=== PATIENT | male | born 1980 | race Caucasian/White ===

== ENCOUNTER 2019-01-22 09:57 | Emergency (ER) | payer SELFPAY ==
[~2019-01-22] VITALS: Ht 172.7 cm; Wt 81.8 kg
[2019-01-22 10:07] VITALS: TEMP 97.8
[2019-01-22] MEDS ORDERED: NORCO 325 MG-7.1 TAB PO (11:58)
[2019-01-22] MEDS ORDERED: CEPHALEXIN500 M1 PO (11:58)
[2019-01-22 12:50] VITALS: BP 103/79; PULSE 58
== END 2019-01-22 12:50 | disposition home or self-care (01) ==
LOC: COL.ER 09:57
DX: S61.216A Laceration without foreign body of right little finger without damage to nail, initial encounter (principal); Z23 Encounter for immunization; W26.8XXA Contact with other sharp object(s), not elsewhere classified, initial encounter; Y92.59 Other trade areas as the place of occurrence of the external cause
CPT/HCPCS: Q4021

== ENCOUNTER → 2021-07-28 | Outpatient (CLI) | payer OTHER ==
[~2021-07-28] MED LIST: CEPHALEXIN500 M1 PO; NORCO 325 MG-7.1 TAB PO
== END ==
LOC: COL.RAD 12:54
DX: K52.9 Noninfective gastroenteritis and colitis, unspecified (principal); K62.89 Other specified diseases of anus and rectum; K76.0 Fatty (change of) liver, not elsewhere classified; D71 Functional disorders of polymorphonuclear neutrophils; N26.1 Atrophy of kidney (terminal); N32.89 Other specified disorders of bladder
CPT/HCPCS: Q9967